=== PATIENT | male | born 1960 | race African-American/Black ===

== ENCOUNTER 2019-10-12 19:24 | Observation (INO) | payer OTHER ==
[~2019-10-12] VITALS: Ht 182.9 cm; Wt 94.3 kg
[~2019-10-12 19:24] MED LIST: INSULIN SQ; METFORMIN HCL850 MG PO
[2019-10-12] MEDS ORDERED: SODIUM CHLORIDE 0.9% 1000ML 1,000 ML ONE ×2 (20:13→23:41)
[2019-10-12 20:15] LABS: BASOPHILS # (AUTO) 0.1 (0.0-0.1); BASOPHILS % 0.4 % (0.0-1.0); EOSINOPHILS # (AUTO) 0.5 (0.0-0.4); EOSINOPHILS % 3.6 % (0.0-6.0); HEMATOCRIT 43.3 % (38.2-49.6); HEMOGLOBIN 15.3 g/dL (14.0-18.0); LYMPHOCYTES # (AUTO) 4.9 (1.0-3.2); LYMPHOCYTES % 36.2 % (18.0-39.1); MEAN CORPUSCULAR HEMOGLOBIN 33.7 pg (28-32); MEAN CORPUSCULAR HGB CONC 35.3 g/dL (31-35); MEAN CORPUSCULAR VOLUME 95.4 fL (81-99); MONOCYTES # (AUTO) 0.7 (0.2-0.8); MONOCYTES % 5.5 % (4.4-11.3); NEUTROPHILS # (AUTO) 7.2 (2.1-6.9); NEUTROPHILS % 53.9 % (38.7-80.0); PLATELET COUNT 248 x10e3/uL (140-360); RED BLOOD COUNT 4.54 x10e6/uL (4.3-5.7); RED CELL DISTRIBUTION WIDTH 10.9 % (11.7-14.4)
[2019-10-12] MEDS ORDERED: SODIUM CHLORIDE 0.9% 1000ML 1,000 ML IV ONE (20:15)
[2019-10-12] MEDS ORDERED: INSULIN REGULAR, HUMAN 100 UNIT/1 ML 3ML VIAL SQ ONE (20:15)
[2019-10-12 20:34] LABS: ALANINE AMINOTRANSFERASE 36 IU/L (0-55); ALKALINE PHOSPHATASE 112 IU/L (40-150); ANION GAP 17.4 mmol/L (8-16); BLOOD UREA NITROGEN 37 mg/dL (7-26); BUN/CREATININE RATIO 14 (6-25); CARBON DIOXIDE 20 mmol/L (22-29); CHLORIDE 101 mmol/L (98-107); CREATINE KINASE 471 IU/L (30-200); EST GLOMERULAR FILTRATION RATE 24 ML/MIN (60-); SODIUM 133 mmol/L (136-145)
[2019-10-12 20:36] LABS: GLUCOSE 454 mg/dL (74-118); POTASSIUM 5.4 mmol/L (3.5-5.1)
[2019-10-12 20:47] LABS: AMYLASE 110 U/L (25-125); LIPASE 159 U/L (8-78)
[2019-10-12] MEDS ORDERED: DIATRIZOATE MEGL/DIATRIZOA SOD 30 ML BTL PO ONE (21:31)
--- NOTE | 2019-10-12 23:13 | Diagnostic Imaging Report ---
EXAM: CT Abdomen and Pelvis WITHOUT contrast INDICATION: ^left abdominal pain ^Y COMPARISON: None. TECHNIQUE: Abdomen and pelvis were scanned utilizing a multidetector helical scanner from the lung base to the pubic symphysis without administration of IV contrast. Absence of intravenous contrast decreases sensitivity for detection of focal lesions and vascular pathology. Coronal and sagittal reformations were obtained. Routine protocol was performed. IV CONTRAST: None ORAL CONTRAST: Gastrografin COMPLICATIONS: None RADIATION DOSE: Total DLP: 651.64 mGy*cm Estimated effective dose: (DLP x 0.015 x size factor) mSv CTDIvol has been reviewed. It is below the limits set by the Radiation Protocol Committee (RPC). FINDINGS: LINES and TUBES: None. LOWER THORAX: Mild bibasilar linear atelectasis/scarring. Left lower lobe calcified granuloma. HEPATOBILIARY: Unenhanced liver is unremarkable. No biliary ductal dilation. GALLBLADDER: No radio-opaque stones or sludge. No wall thickening. SPLEEN: No splenomegaly. Punctate calcification. PANCREAS: No focal masses or ductal dilatation. ADRENALS: No adrenal nodules KIDNEYS/URETERS: No hydronephrosis. Limited for evaluation of renal parenchyma without intravenous contrast. Right renal subcentimeter exophytic hypodensities are too small to characterize. 3.2 cm right renal inferior pole hypodensity, likely a cyst. No stones. GI TRACT: No abnormal distention, wall thickening, or evidence of bowel obstruction. There are diverticula within the colon without evidence of diverticulitis. Appendix is normal. PELVIC ORGANS/BLADDER: Unremarkable. LYMPH NODES: No lymphadenopathy. VESSELS: Unremarkable. PERITONEUM / RETROPERITONEUM: No free air or fluid. BONES: Unremarkable. SOFT TISSUES: Unremarkable. IMPRESSION: 1. No definite evidence of acute inflammatory process in the abdomen/pelvis, considering limitations of unenhanced study. Signed by: Dr. eZn Arias MD on 10/12/2019 11:09 PM
[2019-10-12 23:54] LABS: BILIRUBIN,URINE NEGATIVE (NEGATIVE); CLARITY,URINE CLEAR (CLEAR); COLOR,URINE YELLOW (YELLOW); KETONES,URINE NEGATIVE (NEGATIVE); LEUKOCYTE ESTERASE ,URINE NEGATIVE (NEGATIVE); NITRITE,URINE NEGATIVE (NEGATIVE); PROTEIN,URINE DIPSTICK 2+ (NEGATIVE); URINE UROBILINOGEN 0.2 mg/dL (0.2 - 1)
[2019-10-13] MEDS ORDERED: INSULIN REGULAR, HUMAN 100 UNIT/1 ML 3ML VIAL SQ ONE
[2019-10-13] MEDS ORDERED: SODIUM CHLORIDE 0.9% 1000ML 1,000 ML IV ONE
[2019-10-13 00:23] LABS: BACTERIA,URINE FEW /HPF; EPITHELIAL CELLS,URINE FEW /LPF; RBC,URINE 0-5 /HPF (0-5)
[2019-10-13] MEDS ORDERED: DEXTROSE 50% SYRINGE 50 ML IV PRN (00:30)
[2019-10-13] MEDS ORDERED: ONDANSETRON HCL INJ 2MG/ML 2ML 2 MG/ML VIAL IV PRN (00:30)
--- OUTSIDE RECORDS SUMMARY | 2019-10-13 00:46 | XMS REPORT ---
Author Author [facility] [place] Address Unknown Phone Unavailable Care Team Providers Care Underwear Welter Name Role Phone Chan BARROW Unavailable Unavailable Problems This patient has no known problems. Allergies, Adverse Reactions, Alerts This patient has no known allergies or adverse reactions. Medications This patient has no known medications. Results Test Description Test Time Test Comments Text Results Atomic Results Result Comments CT ABDOMEN/PELVIS WO 2019-10-12 23:03:00 [place] [address] Patient Name: GÉNESIS ULLOA MR #: [id number] : 1960 Age/Sex: 59/M Req #: [id number] Adm Physician: Ordered by: DARREN BARROW MD Report #: [id number] Location: ER Room/Bed: Procedure: [id number] CT/CT ABDOMEN/PELVIS WO Exam Date: Exam Time: REPORT STATUS: Signed EXAM: CT Abdomen and Pelvis WITHOUT contrast INDICATION: left abdominal pain Y COMPARISON: None. TECHNIQUE: Abdomen and pelvis were scanned utilizing a multidetector helical scanner from the lung base to the pubic symphysis without administration of IV contrast. Absence of intravenous contrast decreases sensitivity for detection of focal lesions and vascular pathology. Coronal and sagittal reformations were obtained. Routine protocol was performed. IV CONTRAST: None ORAL CONTRAST: Gastrografin COMPLICATIONS: None RADIATION DOSE: Total DLP: 651.64 mGy*cm Estimated effective dose: (DLP x 0.015 x size factor) mSv CTDIvol has been reviewed. It is below the limits set by the Radiation Protocol Committee (RPC). FINDINGS: LINES and TUBES: None. LOWER THORAX: Mild bibasilar linear atelectasis/scarring. Left lower lobe calcified granuloma. HEPATOBILIARY: Unenhanced liver is unremarkable. No biliary ductal dilation. GALLBLADDER: No radio-opaque stones or sludge. No wall thickening. SPLEEN: No splenomegaly. Punctate calcification. PANCREAS: No focal masses or ductal dilatation. ADRENALS: No adrenal nodules KIDNEYS/URETERS: No hydronephrosis. Limited for evaluation of renal parenchyma without intravenous contrast. Right renal subcentimeter exophytic hypodensities are too small to characterize. 3.2 cm right renal infe rior pole hypodensity, likely a cyst. No stones. GI TRACT: No abnormal distention, wall thickening, or evidence of bowel obstruction. There are diverticula within the colon without evidence of diverticulitis. Appendix is normal. PELVIC ORGANS/BLADDER: Unremarkable. LYMPH NODES: No lymphadenopathy. VESSELS: Unremarkable. PERITONEUM / RETROPERITONEUM: No free air or fluid. BONES: Unremarkable. SOFT TISSUES: Unremarkable. IMPRESSION: 1. No definite evidence of acute inflammatory process in the abdomen/pelvis, considering limitations of unenhanced study. Signed by: Dr. Zen Gary MD on 10/12/2019 11:09 PM Dictated By: ZEN GARY MD 08 Transcribed By: ETHAN on 10/12/192308 COPY TO: DARREN BARROW MD
[2019-10-13] MEDS ORDERED: HYDRALAZINE HCL 20 MG/ML VIAL IV STA (00:47)
[2019-10-13] MEDS: SODIUM CHLORIDE 0.9% 1000ML 1,000 ML IV SCH ×3 (01:44→19:57)
[2019-10-13 06:22] LABS: BASOPHILS # (AUTO) 0.1 (0.0-0.1); BASOPHILS % 0.5 % (0.0-1.0); EOSINOPHILS # (AUTO) 0.6 (0.0-0.4); EOSINOPHILS % 5.4 % (0.0-6.0); HEMATOCRIT 40.8 % (38.2-49.6); HEMOGLOBIN 14.5 g/dL (14.0-18.0); LYMPHOCYTES # (AUTO) 3.8 (1.0-3.2); LYMPHOCYTES % 36.5 % (18.0-39.1); MEAN CORPUSCULAR HGB CONC 35.5 g/dL (31-35); MEAN CORPUSCULAR VOLUME 95.8 fL (81-99); MONOCYTES # (AUTO) 0.7 (0.2-0.8); MONOCYTES % 6.2 % (4.4-11.3); NEUTROPHILS # (AUTO) 5.4 (2.1-6.9); NEUTROPHILS % 50.9 % (38.7-80.0); PLATELET COUNT 198 x10e3/uL (140-360); RED BLOOD COUNT 4.26 x10e6/uL (4.3-5.7); RED CELL DISTRIBUTION WIDTH 10.8 % (11.7-14.4)
[2019-10-13 06:41] LABS: ALBUMIN 3.4 g/dL (3.5-5.0); ALBUMIN/GLOBULIN RATIO 1.1 (0.8-2.0); ANION GAP 10.9 mmol/L (8-16); CALCIUM 9.2 mg/dL (8.4-10.2); CREATININE, SERUM 1.9 mg/dL (0.72-1.25); POTASSIUM 3.9 mmol/L (3.5-5.1)
--- NOTE | 2019-10-13 06:53 | NUR ---
report given to jose eduardo sheridan
--- NOTE | 2019-10-13 06:53 | NUR ---
received report from off going nurse. patient in room in bed. awake and alert. no s/s of acute distress. resp even and nonlabored. pending room assignement for admission.
[2019-10-13] MEDS: INSULIN REGULAR, HUMAN 100 UNIT/1 ML 3ML VIAL SQ SCH ×4 (07:19→21:06)
[2019-10-13 07:34] LABS: CREATINE KINASE 448 IU/L (30-200)
--- NOTE | 2019-10-13 12:32 | Diagnostic Imaging Report ---
Chest, PA and lateral. History: Shortness of breath. Comparison: None available. Discussion: The heart is within normal limits of size. The mediastinal and hilar contours are unremarkable. There is linear atelectasis versus scarring at the left base. No focal consolidation, sizable pleural effusion, or pneumothorax. No acute osseous abnormalities. IMPRESSION: No radiographic evidence of acute cardiopulmonary abnormality. Signed by: Tristan Quevedo MD on 10/13/2019 12:29 PM
[2019-10-13 13:41] VITALS: BP 146/70
--- NOTE | 2019-10-13 13:45 | NUR ---
Recvd patient from ER. AAOx3, Denies any pain, no distress noted, on IV Fluids and Tele box,call light in reach, family at bed side
[2019-10-13 14:38] VITALS: BP 146/70
[2019-10-13 14:52] LABS: CREATINE KINASE 400 IU/L (30-200)
[2019-10-13 16:00] VITALS: BP 155/74
[2019-10-13] MEDS: NEBIVOLOL 10 MG TAB PO SCH (16:52)
--- NOTE | 2019-10-13 18:02 | Diagnostic Imaging Report ---
EXAM: Renal Ultrasound INDICATION: brian COMPARISON: None TECHNIQUE: Transverse and longitudinal images of the kidneys and bladder were obtained. FINDINGS: Right Kidney: Size: 12.6 cm Echogenicity: Normal Parenchymal thickness: Normal Collecting system: No hydronephrosis Stones: None Cyst/Mass: None Left Kidney: Size: 11.0 cm Echogenicity: Normal Parenchymal thickness: Normal Collecting system: No hydronephrosis Stones: None Cyst/Mass: 2.4 x 3.0 x 3.2 cm simple right renal cortical cyst is seen. Bladder: Prevoid volume 131 cc with no significant residual postvoid volume IMPRESSION: 3.2 cm simple right renal cortical cyst, otherwise unremarkable renal ultrasound examination. Signed by: Carlos Alberto Quinones MD on 10/13/2019 5:59 PM
[2019-10-13 18:42] LABS: CREATININE,URINE RANDOM 63.18 mg/dL (63-166)
--- NOTE | 2019-10-13 18:48 | History and Physical ---
CHIEF COMPLAINT: Abnormal labs including high potassium and acute kidney failure. HISTORY OF PRESENT ILLNESS: The patient is a 59-year-old male, on metformin. The patient came in with blood sugar in the 4-500. His potassium was 5.4. BUN and creatinine were 37 and 2.7. The patient came in and was evaluated. CT scan of abdomen and pelvis was unremarkable. The reason for his emergency room visit was he was sent by his family physician, Dr. Ismael Velasquez because of his abnormal labs. The patient did receive normal saline fluid now. He is stable. PAST MEDICAL HISTORY: Hypertension and diabetes. PAST SURGICAL HISTORY: Left inguinal hernia repair. SOCIAL HISTORY: The patient does not smoke or use alcohol. No regular drug use. The patient is disabled. ALLERGIES: TO ASPIRIN. HOME MEDICATIONS: Metformin. PHYSICAL EXAMINATION: VITAL SIGNS: Temperature is 98, blood pressure 142/79, pulse rate 70, and respirations are 20. GENERAL: The patient is not in acute distress. He is awake. HEENT: Normocephalic and atraumatic. Pupils reactive. Anicteric. NECK: Supple grossly. PULMONARY: Clear. CARDIOVASCULAR: Regular rate and rhythm. ABDOMEN: Soft and unremarkable. EXTREMITIES: No cyanosis or edema. NEUROLOGIC: No gross focal deficit. LABORATORY DATA: The sodium is 133, potassium 5.4, chloride 101, bicarb 20, BUN is 37, creatinine 2.7, and glucose is 453. WBC 13.4, hemoglobin 15.3, hematocrit 43.3, and platelets is 248. Urinalysis showed that the patient has 3+ glucose and 2+ protein. CT abdomen and pelvis unremarkable. IMPRESSION: 1. Acute kidney injury. 2. Hyperkalemia. 3. Severe high blood sugar. 4. Baseline diabetes. 5. Hypertension. PLAN: Bystolic. Check thyroid function test and hemoglobin A1c. Consultation with Dr. Chad Padron, nut steamer. Insulin sliding scale coverage. Check blood pressure and management. We will repeat the patient's lab work. We will monitor the patient closely at this time. MD SHUBHAM Fox/MODL /[id number]
--- NOTE | 2019-10-13 19:05 | NUR ---
Received report from day nurse. patient is resting comfortably in the bed. bed is in the lowest position and call sánchez is within reach. will continue to monitor patient.
[2019-10-13 20:00] VITALS: BP 145/78
[2019-10-13 20:19] VITALS: BP 145/78
--- NOTE | 2019-10-13 21:39 | Consultation ---
DATE OF CONSULTATION: 10/13/2019 HISTORY OF PRESENT ILLNESS: This is a 59-year-old gentleman with past history of hypertension over several years, was feeling weak, tired, failure to thrive, went to see the primary doctor. His is a diabetic and she advised him to go. He is found to have elevated blood sugars. He has been diagnosed with new onset of diabetes, currently admitted. Denies any history of any kidney stone disease, prostate problems. He does take Advil occasionally, takes Michelle for his allergies. Denies shortness of breath, nausea, vomiting, headache, fever, chills, chest pain, shortness of breath. Also denies any hematuria. LABORATORY DATA: Labs show white count 10.5, hemoglobin 14.5. Labs show sodium 137, potassium 3.9, bicarbonate 22, creatinine 1.9, total protein 6.5, globulin 3.2. Urinalysis shows specific gravity 1015. Dipstick, positive protein with 0-5 rbc's, 6-10 wbc's. SOCIAL HISTORY: As above. ALLERGIES: TO ASPIRIN. CURRENT MEDICATIONS: The patient is on normal saline 125 mL an hour. He has been started on insulin. He is on Bystolic 10 mg daily and is on ondansetron p.r.n. PHYSICAL EXAMINATION: GENERAL: Awake, alert, lying supine, in no apparent distress. VITAL SIGNS: Blood pressure of 146/70, pulse is 72, afebrile. HEAD AND NECK: Cornea clear. Oral mucosa moist. Neck: Neck veins flat. LUNGS: Relatively clear. HEART: S1, S2 audible. ABDOMEN: Otherwise, soft and nontender. EXTREMITIES: Lower extremity examination shows no edema. IMPRESSION AND PLAN: Acute kidney injury in a patient with longstanding history of hypertension and new onset of diabetes. Urinalysis noted dipstick positive protein. His hemoglobin A1c is 9.5. His CK is 448. Repeat pending. Agree with choice of IV fluid. I will check urinalysis repeat, check for urine pH, urine protein/creatinine ratio, kidney ultrasound. We are probably dealing with underlying hypertensive nephrosclerosis. Etiology of elevated CK unclear at this point in time, could be medication induced. I advised him against the use of nonsteroidal and anti-inflammatory drug medications. Please see orders. MD LEO Cid/HUEL /[id number]
[2019-10-14] VITALS: BP 127/72
[2019-10-14] MEDS: SODIUM CHLORIDE 0.9% 1000ML 1,000 ML IV SCH (03:33)
[2019-10-14 04:00] VITALS: BP 149/76
[2019-10-14 05:41] LABS: BASOPHILS # (AUTO) 0.1 (0.0-0.1); BASOPHILS % 0.7 % (0.0-1.0); EOSINOPHILS # (AUTO) 0.5 (0.0-0.4); HEMATOCRIT 38.1 % (38.2-49.6); HEMOGLOBIN 13.1 g/dL (14.0-18.0); LYMPHOCYTES # (AUTO) 3.7 (1.0-3.2); LYMPHOCYTES % 38.7 % (18.0-39.1); MEAN CORPUSCULAR HEMOGLOBIN 33.9 pg (28-32); MEAN CORPUSCULAR HGB CONC 34.4 g/dL (31-35); MEAN CORPUSCULAR VOLUME 98.4 fL (81-99); MONOCYTES # (AUTO) 0.6 (0.2-0.8); MONOCYTES % 6.5 % (4.4-11.3); NEUTROPHILS # (AUTO) 4.6 (2.1-6.9); NEUTROPHILS % 48.7 % (38.7-80.0); PLATELET COUNT 183 x10e3/uL (140-360); RED BLOOD COUNT 3.87 x10e6/uL (4.3-5.7); RED CELL DISTRIBUTION WIDTH 10.9 % (11.7-14.4)
[2019-10-14 06:01] LABS: ALANINE AMINOTRANSFERASE 28 IU/L (0-55); ALBUMIN 3.1 g/dL (3.5-5.0); ALKALINE PHOSPHATASE 78 IU/L (40-150); ANION GAP 11.3 mmol/L (8-16); BLOOD UREA NITROGEN 18 mg/dL (7-26); BUN/CREATININE RATIO 13 (6-25); CALCIUM 8.7 mg/dL (8.4-10.2); CARBON DIOXIDE 21 mmol/L (22-29); CHLORIDE 111 mmol/L (98-107); CREATININE, SERUM 1.43 mg/dL (0.72-1.25); EST GLOMERULAR FILTRATION RATE > 60 ML/MIN (60-); GLUCOSE 171 mg/dL (74-118); POTASSIUM 4.3 mmol/L (3.5-5.1); SODIUM 139 mmol/L (136-145)
[2019-10-14 06:15] LABS: CHOL/HDL RATIO 4.2 (3.9-4.7)
[2019-10-14] MEDS ORDERED: INFLUENZA VIRUS VAC SPLIT INJ 0.5 ML SYR IM SCH (06:30)
[2019-10-14] MEDS: INSULIN REGULAR, HUMAN 100 UNIT/1 ML 3ML VIAL SQ SCH (07:30)
[2019-10-14 08:04] VITALS: BP 149/66
[2019-10-14] MEDS: NEBIVOLOL 10 MG TAB PO SCH (09:35)
--- NOTE | 2019-10-14 09:40 | NUR ---
IV REMOVED AT THIS TIME WITHOUT COMPLICATION. TELE BOX12 REMOVED AT THIS TIME.
--- NOTE | 2019-10-14 09:52 | NUR ---
PATIENT LEAVING UNIT AT THIS TIME. DISCHARGE INSTRUCTIONS GIVEN. PRESCRIPTIONS GIVEN TO PATIENT, COPY MADE AND PLACED IN CHART. PATIENT DENIES ANY FURTHER QUESTIONS. PRESENT AT BEDSIDE TO TAKE PATIENT HOME. PATIENT DENIES WHEELCHAIR TO GET TO LOBBY. PCT BHAVANI ESCORTING PATIENT TO LOBBY AT THIS TIME.
--- NOTE | 2019-10-15 09:07 | Discharge Summary ---
PRIMARY CARE PHYSICIAN: Ismael Velasquez MD DIRECTOR OF TEACHER EDUCATION: Chad Padron MD FINAL DIAGNOSES: 1. Acute kidney insufficiency/injuries, secondary to dehydration and uncontrolled diabetes type 2. 2. Hyperglycemia with glycohemoglobin A1c of 9.5. 3. Baseline hypertension and diabetes, not on much medication. SUMMARY: The patient is a 59-year-old male, came in with hypertensive urgency along with that BUN and creatinine were elevated. The patient's BUN on admission was 37, creatinine 2.7. Blood sugar was 454. Subsequent glycohemoglobin A1c was 9.5%. The patient now rehydrated, BUN and creatinine of 31 and 1.9. The patient is otherwise, stable. Discussed with the patient on his findings. The patient would like to go home and I agreed. The patient's blood pressure is slightly elevated, but he is also on Bystolic and IV fluid, that was subsequently discontinued and add on Norvasc 5 mg daily. Currently, the patient will go home with the following medication, Bystolic 10 mg daily, Glucotrol XL 10 mg daily, and Norvasc 5 mg daily. I also gave the patient a glucometer, test strips, and lancets. The patient will follow up with his family physician for adjustment of his blood pressure medication and diabetes control. He may follow up with Dr. Chad Padron group for his renal care. MD SHUBHAM Fox/MODL /[id number]
== END 2019-10-14 09:52 | disposition home or self-care (01) ==
LOC: ER 19:24 → ERHOLD 10-13 00:22 → MED/SURG2 10-13 13:39
PROVIDERS: ADMIT Internal Medicine; ATTEND Internal Medicine
DX: N17.9 Acute kidney failure, unspecified (principal); E86.0 Dehydration; E11.65 Type 2 diabetes mellitus with hyperglycemia; I10 Essential (primary) hypertension; E87.5 Hyperkalemia; I12.9 Hypertensive chronic kidney disease with stage 1 through stage 4 chronic kidney disease, or unspecified chronic kidney disease; E11.22 Type 2 diabetes mellitus with diabetic chronic kidney disease; N18.9 Chronic kidney disease, unspecified
CPT/HCPCS: 36415 ×3; 71046; 74176; 76770; 80053 ×3; 80061; 81001; 82150; 82550 ×2; 82553 ×2; 82570; 82948 ×3; 83036; 83690; 84156; 84443; 84484 ×2; 85025 ×3; 93005; 96372; 99284; G0378 ×2; J7030 ×3